=== PATIENT | male | born 1980 ===

== ENCOUNTER 2021-05-25 16:33 | Emergency (ER) | payer SELFPAY ==
[~2021-05-25] VITALS: Ht 182.9 cm; Wt 95.3 kg
[2021-05-25 18:46] VITALS: BP 140/94
== END 2021-05-25 18:55 | disposition home or self-care (01) ==
LOC: ER 16:33
DX: G44.209 Tension-type headache, unspecified, not intractable (principal); Z90.89 Acquired absence of other organs
CPT/HCPCS: 70450